=== PATIENT | female | born 1945 | race Caucasian/White ===

== ENCOUNTER 2022-07-24 09:32 | Outpatient (RCR) | payer MEDICARE, SELFPAY ==
[2022-07-24 10:01] VITALS: BP 132/65; PULSE 68; RESP 16; TEMP 36.2; BMI 25.7
--- NOTE | 2022-07-25 08:02 | PCM.WC.HP ---
History of Present Illness Date of Service: 07/24/22 Chief Complaint: Chronic nonhealing of a cutaneous biopsy site History of Wound: This is a 76-year-old female who presents with a chronic, nonhealing cutaneous biopsy site on her left lateral calf. Patient has a history of malignant melanoma in her right leg. 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 In March 2022 the patient underwent excisional biopsy of a skin lesion on the left lateral calf. This was performed by Dr. Shae Velazquez at [facility]. While the biopsy results are not currently available, the patient states that she was told that it was precancerous. We will attempt to obtain the written biopsy report. The biopsy site has failed to heal. She has been referred for definitive management. She has been applying Vaseline topically to the site. [facility] Medical History Arthritis Atrial fibrillation Borderline diabetes mellitus Chronic wound of extremity Degenerative disc disease GERD (gastroesophageal reflux disease) History of meningioma History of TIA (transient ischemic attack) Hyperlipidemia Hyperpigmentation Hypertension Left leg swelling Mitral valve regurgitation PVCs (premature ventricular contractions) Scoliosis Swelling of left lower extremity Home Medications Lactobacillus acidophilus 1.5 mg (250 million cell) capsule (Probiotic Acidophilus) PO DAILY 07/24/22 [History Last Taken Unknown] acetaminophen 325 mg tablet (Tylenol) 325 - 650 mg PO Q6H PRN Pain 07/24/22 [History Last Taken Unknown] apixaban 5 mg tablet (Eliquis) 5 mg PO BID 07/24/22 [History Last Taken Unknown] atorvastatin 10 mg tablet 10 mg PO DAILY 07/24/22 [History Last Taken Unknown] biotin PO/SL DAILY 07/24/22 [History Last Taken Unknown] cholecalciferol (vitamin D3) 25 mcg (1,000 unit) tablet (Vitamin D3) 25 mcg PO DAILY 07/24/22 [History Last Taken Unknown] diphenhydramine HCl 25 mg capsule (Benadryl) 25 mg PO QHS 07/24/22 [History Last Taken Unknown] escitalopram oxalate 20 mg tablet 20 mg PO DAILY 07/24/22 [History Last Taken Unknown] fiber cap PO 07/24/22 [History Last Taken Unknown] metoprolol succinate 50 mg tablet,extended release 24 hr 50 mg PO DAILY 07/24/22 [History Last Taken Unknown] multivitamin 1 tab PO BID 07/24/22 [History Last Taken Unknown] omega 1-trd-hlz-fish oil 1,200 mg (144 mg-216 mg) capsule (Fish Oil) 1,200 cap PO DAILY 07/24/22 [History Last Taken Unknown] omeprazole 20 mg capsule,delayed release 20 mg PO DAILY 07/24/22 [History Last Taken Unknown] Allergy/AdvReac Type Severity Reaction Status Date / Time sertraline [From Zoloft] Allergy Hives Verified 07/24/22 10:43 Sulfa (Sulfonamide Allergy PT UNSURE Verified 07/24/22 10:43 Antibiotics) OF REACTION amoxicillin [From Augmentin] AdvReac Diarrhea Verified 07/24/22 10:43 clavulanic acid AdvReac Diarrhea Verified 07/24/22 10:43 [From Augmentin] Iodinated Contrast Media AdvReac PT UNSURE Verified 07/24/22 10:43 [CONTRASTS] OF REACTION Surgical History Status post appendectomy Status post cataract extraction Status post partial colectomy Status post tonsillectomy Status post total knee replacement Status post tubal ligation Social History Smoking Status: Former smoker Vital Signs Vital Signs Vital Signs: 07/24/22 10:01 Temperature 97.1 F L Temperature Source Temporal Pulse Rate 68 Respiratory Rate 16 Blood Pressure 132/65 H Blood Pressure Mean 87 Blood Pressure Source Monitor Blood Pressure Position Sitting Blood Pressure Location Left Arm Oxygen Delivery Method Room Air Weight Weight: 134 lb Body Mass Index (BMI) 25.7 Physical Exam Const alert, oriented x3, no apparent distress, average body habitus and well nourished General Appearance: cooperative, comfortable, well kempt and well developed Orientation / Consciousness: awake, oriented to person, oriented to place and oriented to time Exam Limitations: no limitations HEENT normocephalic and head/scalp atraumatic Head and Scalp: normal to inspection, normocephalic and atraumatic External Ear: external ears normal Eyes PERRL and EOMs intact bilaterally General Eye: normal appearance of both eyes Resp normal respiratory effort, normal air movement, no retractions and no use of accessory muscles Effort and Inspection: able to speak in complete sentences Extremity no calf tenderness General Extremity: Negative for clubbing or cyanosis Skin Wound Narrative: Mild hemosiderin staining/hyperpigmentation is noted in the left lower extremity. Slight swelling is also noted in the left lower extremity. An ulceration is noted on the left lateral calf, the site of the patient's prior biopsy in March 2022. There is a moderate amount of bioburden. A small amount of nonviable necrotic tissue is present. Dimensions are documented elsewhere. Neuro oriented x3, CN's II-XII intact bilaterally, moves all extremities and no focal motor deficits Sensorium / Orientation: awake, alert, oriented to person, oriented to place and oriented to time Psych Appearance: grossly normal and appropriate Attitude: calm Activity / Motor Behavior: appropriate eye contact Speech: normal speech Mood & Affect: euthymic mood Thought Process: normal thought process Thought Content: normal thought content Attention / Concentration: attention grossly intact Debridement Note Debridement Note Wound debrided: Left lateral calf Laterality: Left Type of Debridement: Excisional debridement Anesthesia Used: 5% Lidocaine Gel Depth: Down to and including healthy tissue and in the subcutaneous layer Percentage of wound debrided: 100 Instrument Used: 5mm curette Tissue Removed: Bioburden and nonviable/necrotic tissue Severity: Fat Layer Exposed Amount of bleeding with debridement: Mild Bleeding Controlled with: Compression and gauze Patient tolerated procedure: Patient tolerated procedure well Debridement Free Text: Bacterial cultures were obtained by means of swab. Both aerobic and anaerobic swab cultures were obtained. Post-Debridement Measurements and Additional Note: Post-Debridement Measurements/Treatment KANNAN - Nurse 1 - General Ulcer Assessment Start: 07/24/22 10:01 Freq: Status: Active Protocol: ALEJANDRA Activity Type Activity Date Activity User E-sign Co-sign Detail Recorded Client Recorded Date Recorded By Document 07/24/22 10:01 MW [id number] 07/24/22 10:16 MW 07/24/22 10:01 - Today's Visit Information Type of service Initial Visit Arrival Mode Ambulatory Transfer Assistance None Accompanied by self Patient Identification Verified (Name & Yes ) Patient Requires Transmission-Based Yes Precautions Safety Precautions NA Height and Weight Height 5 ft 0.5 in Weight 134 lb Weight in Pounds 134.0 lbs Body Mass Index (BMI) 25.7 BMI Classification Overweight BSA - Cornelius 1.58 Vital Signs Temperature (97.8 F-99.1 F) 97.1 F L Temperature Source Temporal Pulse Rate (60-100) 68 Pulse Location Monitor Respiratory Rate (12-18) 16 Respiratory rate source Observation Oxygen Delivery Method Room Air Blood Pressure (90/60-120/80) 132/65 H Blood Pressure Mean 87 Source Monitor Position Sitting Blood Pressure Location Left Arm History Since Last Visit- (Skip if this is Patient's initial visit) Left Footwear Regular Shoe Right Footwear Regular Shoe Pain Scale: 0-10 Numeric Is Patient Pain Free? No Lower Extremity Assessment/ Foot Assessment/ Toe Nail Assessment Right -Posterior Tibial Palpable No -Posterior Tibial Doppler Multiphasic -Dorsalis Pedis Palpable Yes -Dorsalis Pedis Doppler Multiphasic -Extremity Color Hemosiderin -Hair Growth on Legs No -Hair Growth on Toes No -Temperature of Extremity Warm -Capillary Refill Less than 3 Seconds -Dependent Rubor No -Lipodermatosclerosis No -Other Deformity No -Prior Foot Ulcer No -Charcot Joint No -Prior Amputation No -Thick No -Discolored No -Deformed No -Improper Length & Hygeine No Left -Claudication Assessment None -Posterior Tibial Palpable No -Posterior Tibial Doppler Multiphasic -Dorsalis Pedis Palpable Yes -Dorsalis Pedis Doppler Multiphasic -Extremity Color Hyperpigmented -Hair Growth on Legs No -Hair Growth on Toes No -Temperature of Extremity Warm -Capillary Refill Less than 3 Seconds -Dependent Rubor No -Lipodermatosclerosis No -Other Deformity No -Prior Foot Ulcer No -Charcot Joint No -Prior Amputation No -Thick No -Discolored No -Deformed No -Improper Length & Hygeine No Neuropathy Assessment Feet - Top Side and Bottom <Entered> (a) Communication Assessment Preferred language Citizen Of [place] Skein Spooler Required No Able to Read No Able to Write No Communication Tools None Caregiver Communication Skills No Impairment Impairment Right Hearing Abillity Normal Left Hearing Abillity Normal Visual Assistive Devices Glasses Teaching Assessment Preferences Verbal,Written, Audio/Visual, Demonstration Barriers to Learning None Readiness To Learn Excellent Willingness to Engage in Self Management High Activies Readiness to Engage in Self Management High Activities Anxiety Level Calm Cooperation Cooperative Perception Coherent Interest in Health Problem Asks Questions Education Importance Acknowledges Need Does Patient Smoke tobacco or other No substances Smoking Status Former smoker Is Patient Diabetic Yes Functional Assessment Recent Decline in Ability to Perform Denies Any Declines Assistive Device With Patient No Culture/Caodaism/Hospital Fellow Cultural/Caodaism Needs that may affect No Treatment Plan Would you allow our hospital cosmetology educator to No meet you for the purpose of spiritual/ emotional support? Hospital Fellow to contact place of rastafarian No Teaching: Wound Center *Welcome to the Wound Center -Person Taught Patient -Teaching Method Discussion -Response to teaching Verbalize understanding (a) 1 - + WC - Nurse 1 - General Ulcer Measurement Start: 07/24/22 10:01 Freq: Status: Active Protocol: Activity Type Activity Date Activity User E-sign Co-sign Detail Recorded Client Recorded Date Recorded By Document 07/24/22 10:01 MW [id number] 07/24/22 10:16 MW 07/24/22 10:01 Wound Center Nurse 1 #1 left lateral LE -Combined with other wound No -Current Size (cm) - Length 0.8 -Current Size (cm) - Width 0.8 -Current Size (cm) - Depth 0.3 -Total Square Cm 0.64 -Date of Last Picture (Recall this 07/24/22 field) -Photo Taken Yes -Epithelialization None Present -Tunneling No -Undermining/Tunneling No -Circular Undermining No -Exudate Amt None Present -Wound Margin Flat & Intact -Granulation Amt None Present (0 %) -Granulation Quality N/A -Slough/Fibrin Yes -Necrosis Amt Large (67-100%) -Necrotic Tissue Type Eschar -Structure Exposed N/A -Texture (Crystal-wound Skin Appearance) Assessed, Localized Edema -Moisture (Crystal-wound Skin Appearance) Assessed -Color (Crystal-wound Skin Appearance) Assessed, Hemosiderin Staining -Temperature (Crystal-wound Skin No Abnormality Appearance) (Pt Warm) -Tenderness on Palpation (Crystal-wound Yes Skin Appearance) -Ulcer Cleansing Rinsed/ Irrigated with Saline -Foul Odor after Cleansing No -Anesthetic Used 5% Lidocaine Gel Lower Limb Edema Present Yes Right Calf (cm) 31.5 Right Ankle (cm) 19.2 Left Calf (cm) 33.1 Left Ankle (cm) 22.0 WC - Nurse 2 - General Ulcer CM Notes Start: 07/24/22 10:01 Freq: Status: Active Protocol: Activity Type Activity Date Activity User E-sign Co-sign Detail Recorded Client Recorded Date Recorded By Document 07/24/22 12:06 PL [id number] 07/24/22 12:11 PL 07/24/22 12:06 Wound Center Nurse 2 #1 left lateral LE -Time 10:47 -Correct Patient Yes -Correct Side, Site, Position Yes -Correct Procedure Yes -Procedure Performed Yes -Type of Procedure Debridement -Clinical Debridement Subcutaneous -Tissue Removed Subcutaneous -Post Debridement (cm) - Length 0.8 -Post Debridement (cm) - Width 0.8 -Post Debridement (cm) - Depth 0.3 -Total Square (Post) (cm) 0.64 -Area of Debridement (cm) - Length 0.8 -Area of Debridement (cm) - Width 0.8 -Total Square (Area) (cm) 0.64 -Tunneling No -Undermining/Tunneling No -Circular Undermining No -Wound/Ulcer Outcome Not Healed -Ulcer Cleansing Rinsed/ Irrigated with Saline -Foul Odor after Cleansing No -Bioengineered Tissue No -Bleeding Controlled with Pressure -Treatment Response Procedure Tolerated Well -Debridement - Subq, 1st 20sq cm Yes Pain Scale: 0-10 Numeric Is Patient Pain Free? Yes - Nurse 3 - General Ulcer D/C NN Start: 07/24/22 10:01 Freq: Status: Active Protocol: Activity Type Activity Date Activity User E-sign Co-sign Detail Recorded Client Recorded Date Recorded By Document 07/24/22 11:07 MW [id number] 07/24/22 11:09 MW 07/24/22 11:07 Wound Care Nurse 3 #1 left lateral LE -Ulcer Cleansing Rinsed/ Irrigated with Saline -Foul Odor after Cleansing No -Negative Pressure Wound Therapy N/A -Primary Dressing Applied Nugauze, Plain Iodoform -Other Dressing dressing applied per Betsy Sofia RN -Primary Dressing Covered/Secured with Dry Gauze & Roll Gauze, Secured with Tape -Nugauze, Plain Iodoform 1/4 1 Left -Lotion applied to leg before No compression wrap -Tubular Bandage Single Layer -Size of Tubigrip Used Size D -Size D ($) 1 Treatment Response Procedure Tolerated Well Pain Scale: 0-10 Numeric Is Patient Pain Free? Yes Teaching: Wound Center Dressing Your Wound -Person Taught Patient -Teaching Method Discussion, Demonstration -Response to teaching Verbalize understanding WC - Visit Discharge Discharge Condition Stable Ambulatory Status Ambulatory Transportation Private Auto Accompanied by self Medication Reconcilliation completed & No provided to patient/care provider Clinical Summary of Care Provided Yes Assessment/Plan Assessment/Plan (1) Chronic wound of extremity: (2) Swelling of left lower extremity: CODE(S): M79.89 - Other specified soft tissue disorders (3) Atrial fibrillation: CODE(S): I48.91 - Unspecified atrial fibrillation (4) History of meningioma: CODE(S): Z86.018 - Personal history of other benign neoplasm (5) Degenerative disc disease: (6) Arthritis: CODE(S): M19.90 - Unspecified osteoarthritis, unspecified site (7) GERD (gastroesophageal reflux disease): CODE(S): K21.9 - Gastro-esophageal reflux disease without esophagitis (8) Borderline diabetes mellitus: CODE(S): R73.03 - Prediabetes (9) Mitral valve regurgitation: CODE(S): I34.0 - Nonrheumatic mitral (valve) insufficiency (10) PVCs (premature ventricular contractions): CODE(S): I49.3 - Ventricular premature depolarization (11) Scoliosis: CODE(S): M41.9 - Scoliosis, unspecified (12) History of TIA (transient ischemic attack): CODE(S): Z86.73 - Personal history of transient ischemic attack (TIA), and cerebral infarction without residual deficits (13) Status post appendectomy: CODE(S): Z90.49 - Acquired absence of other specified parts of digestive tract (14) Status post partial colectomy: CODE(S): Z90.49 - Acquired absence of other specified parts of digestive tract (15) Status post total knee replacement: CODE(S): Z96.659 - Presence of unspecified artificial knee joint (16) Status post tubal ligation: CODE(S): Z98.51 - Tubal ligation status (17) Status post tonsillectomy: CODE(S): Z90.89 - Acquired absence of other organs (18) Status post cataract extraction: CODE(S): Z98.49 - Cataract extraction status, unspecified eye (19) Hypertension: CODE(S): I10 - Essential (primary) hypertension (20) Hyperlipidemia: CODE(S): E78.5 - Hyperlipidemia, unspecified (21) Hyperpigmentation: CODE(S): L81.9 - Disorder of pigmentation, unspecified (22) Left leg swelling: CODE(S): M79.89 - Other specified soft tissue disorders PLAN: Plan This is a 76-year-old female who presents with a chronic, nonhealing wound on the left lateral calf, the result of a biopsy performed in March 2022. We are to seek the written report regarding the biopsy results. Anecdotally, the report revealed precancerous findings. Patient has been advised to elevate her lower extremities as much as possible, and to continue sleeping on a flat mattress at night. Leg elevation is to be to heart level, or higher. We will initiate the use of Tubigrip's on a daily basis. Culture results will be awaited. We are to implement the use of 1/4 inch Nu Gauze moistened with 0.25% Dakin's solution, which will be applied by the patient on a daily basis. The patient is to return in 1 week for reassessment. Total time: 59 minutes
== END 2022-07-25 23:59 | disposition home or self-care (01) ==
LOC: WC 09:32
PROVIDERS: PCP Nurse Practitioner Family; Visit Provider Surgery
DX: L97.922 Non-pressure chronic ulcer of unspecified part of left lower leg with fat layer exposed (principal); I73.9 Peripheral vascular disease, unspecified; I48.91 Unspecified atrial fibrillation; M79.89 Other specified soft tissue disorders; K21.9 Gastro-esophageal reflux disease without esophagitis; I10 Essential (primary) hypertension; Z90.49 Acquired absence of other specified parts of digestive tract; M41.9 Scoliosis, unspecified; I49.3 Ventricular premature depolarization; Z96.659 Presence of unspecified artificial knee joint; G62.9 Polyneuropathy, unspecified; R73.03 Prediabetes; Z90.89 Acquired absence of other organs; I34.0 Nonrheumatic mitral (valve) insufficiency; R60.0 Localized edema; M19.90 Unspecified osteoarthritis, unspecified site; Z87.891 Personal history of nicotine dependence; E78.5 Hyperlipidemia, unspecified; Z79.01 Long term (current) use of anticoagulants; Z86.018 Personal history of other benign neoplasm; Z86.73 Personal history of transient ischemic attack (TIA), and cerebral infarction without residual deficits; Z98.51 Tubal ligation status; L81.9 Disorder of pigmentation, unspecified
CPT/HCPCS: 11042; 87070; 87075; 87077; 87186; 87205; 99213; G0463

== ENCOUNTER 2022-08-21 10:30 | Outpatient (RCR) | payer MEDICARE, SELFPAY ==
[2022-07-26 00:48] VITALS: BP 132/65; PULSE 68; RESP 16; TEMP 36.2; BMI 25.7
[2022-07-31 10:32] VITALS: BP 140/80; PULSE 76; TEMP 36.2; BMI 25.7
--- NOTE | 2022-07-31 11:06 | HP.PCM_ITS ---
History of Present Illness Date of Service: 07/31/22 Chief Complaint: Chronic nonhealing of a cutaneous biopsy site History of Wound: This is a 76-year-old female who presented with a chronic, non-healing cutaneous biopsy site on her left lateral calf. Patient has a history of malignant melanoma in her right leg. 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 In March 2022 the patient underwent excisional biopsy of a skin lesion on the left lateral calf. This was performed by Dr. Shae Velazquez at [facility]. While the biopsy results are not currently available, the patient states that she was told that it was precancerous. We will attempt to obtain the written biopsy report. The biopsy site has failed to heal. She has been referred for definitive management. She had been applying Vaseline topically to the site. [facility] Medical History Arthritis Atrial fibrillation Borderline diabetes mellitus Chronic wound of extremity Degenerative disc disease GERD (gastroesophageal reflux disease) History of meningioma History of TIA (transient ischemic attack) Hyperlipidemia Hyperpigmentation Hypertension Left leg swelling Mitral valve regurgitation PVCs (premature ventricular contractions) Scoliosis Swelling of left lower extremity Home Medications Lactobacillus acidophilus 1.5 mg (250 million cell) capsule (Probiotic Acidophilus) PO DAILY 07/24/22 [History Last Taken Unknown] acetaminophen 325 mg tablet (Tylenol) 325 - 650 mg PO Q6H PRN Pain 07/24/22 [History Last Taken Unknown] apixaban 5 mg tablet (Eliquis) 5 mg PO BID 07/24/22 [History Last Taken Unknown] atorvastatin 10 mg tablet 10 mg PO DAILY 07/24/22 [History Last Taken Unknown] biotin PO/SL DAILY 07/24/22 [History Last Taken Unknown] cholecalciferol (vitamin D3) 25 mcg (1,000 unit) tablet (Vitamin D3) 25 mcg PO DAILY 07/24/22 [History Last Taken Unknown] diphenhydramine HCl 25 mg capsule (Benadryl) 25 mg PO QHS 07/24/22 [History Last Taken Unknown] escitalopram oxalate 20 mg tablet 20 mg PO DAILY 07/24/22 [History Last Taken Unknown] fiber cap PO 07/24/22 [History Last Taken Unknown] metoprolol succinate 50 mg tablet,extended release 24 hr 50 mg PO DAILY 07/24/22 [History Last Taken Unknown] multivitamin 1 tab PO BID 07/24/22 [History Last Taken Unknown] omega 6-bmf-gbt-fish oil 1,200 mg (144 mg-216 mg) capsule (Fish Oil) 1,200 cap PO DAILY 07/24/22 [History Last Taken Unknown] omeprazole 20 mg capsule,delayed release 20 mg PO DAILY 07/24/22 [History Last Taken Unknown] Allergy/AdvReac Type Severity Reaction Status Date / Time sertraline [From Zoloft] Allergy Hives Verified 07/24/22 10:43 Sulfa (Sulfonamide Allergy PT UNSURE Verified 07/24/22 10:43 Antibiotics) OF REACTION amoxicillin [From Augmentin] AdvReac Diarrhea Verified 07/24/22 10:43 clavulanic acid AdvReac Diarrhea Verified 07/24/22 10:43 [From Augmentin] Iodinated Contrast Media AdvReac PT UNSURE Verified 07/24/22 10:43 [CONTRASTS] OF REACTION Surgical History Status post appendectomy Status post cataract extraction Status post partial colectomy Status post tonsillectomy Status post total knee replacement Status post tubal ligation Social History Smoking Status: Former smoker Vital Signs Vital Signs Vital Signs: 07/31/22 10:32 Temperature 97.2 F L Temperature Source Temporal Pulse Rate 76 Blood Pressure 140/80 H Blood Pressure Mean 100 Blood Pressure Source Monitor Weight Weight: 134 lb Body Mass Index (BMI) 25.7 Physical Exam Const alert, oriented x3, no apparent distress, average body habitus and well nourished General Appearance: cooperative, comfortable, well kempt and well developed Orientation / Consciousness: awake, oriented to person, oriented to place and oriented to time Exam Limitations: no limitations HEENT normocephalic and head/scalp atraumatic Head and Scalp: normal to inspection, normocephalic and atraumatic External Ear: external ears normal Eyes PERRL and EOMs intact bilaterally General Eye: normal appearance of both eyes Resp normal respiratory effort, normal air movement, no retractions and no use of accessory muscles Effort and Inspection: able to speak in complete sentences Extremity no calf tenderness General Extremity: Negative for clubbing or cyanosis Skin Wound Narrative: Mild hemosiderin staining/hyperpigmentation is noted in the left lower extremity. Minimal swelling is noted in the left lower extremity. A wound is noted on the left lateral calf, the site of the patient's prior biopsy in March 2022. There is a mild amount of bioburden. However, the appearance of the wound is much improved as compared to 1 week prior. Dimensions are documented elsewhere. Neuro oriented x3, CN's II-XII intact bilaterally, moves all extremities and no focal motor deficits Sensorium / Orientation: awake, alert, oriented to person, oriented to place and oriented to time Psych Appearance: grossly normal and appropriate Attitude: calm Activity / Motor Behavior: appropriate eye contact Speech: normal speech Mood & Affect: euthymic mood Thought Process: normal thought process Thought Content: normal thought content Attention / Concentration: attention grossly intact Debridement Note Debridement Note Wound debrided: Left lateral calf Laterality: Left Type of Debridement: Excisional debridement Anesthesia Used: 5% Lidocaine Gel Depth: Down to and including healthy tissue and in the subcutaneous layer Percentage of wound debrided: 100 Instrument Used: 5mm curette Tissue Removed: Bioburden and nonviable/necrotic tissue Severity: Fat Layer Exposed Amount of bleeding with debridement: Mild Bleeding Controlled with: Compression and gauze Patient tolerated procedure: Patient tolerated procedure well Debridement Free Text: Bacterial cultures were obtained by means of swab. Both aerobic and anaerobic swab cultures were obtained. Post-Debridement Measurements and Additional Note: Post-Debridement Measurements/Treatment - Nurse 1 - General Ulcer Assessment Start: 07/31/22 10:32 Freq: Status: Active Protocol: ALEJANDRA Activity Type Activity Date Activity User E-sign Co-sign Detail Recorded Client Recorded Date Recorded By Document 07/31/22 10:32 MI [id number] 07/31/22 10:34 YOSELIN 07/31/22 10:32 - Today's Visit Information Type of service Follow-up Visit (Physician/[facility] [facility] ) Arrival Mode Ambulatory Patient Identification Verified (Name & Yes ) Patient Requires Transmission-Based No Precautions Safety Precautions NA Height and Weight Body Mass Index (BMI) 25.7 BMI Classification Overweight Vital Signs Temperature (97.8 F-99.1 F) 97.2 F L Temperature Source Temporal Pulse Rate (60-100) 76 Pulse Location Monitor Blood Pressure (90/60-120/80) 140/80 H Blood Pressure Mean 100 Source Monitor History Since Last Visit- (Skip if this is Patient's initial visit) Have you changed medications since your No last visit? Any new allergies or adverse reactions No Had a fall/change in ADL's that may No increase risk of falls Signs or symptoms of abuse and/or No neglect since last visit Have you been in the hospital since your No last visit? Has dressing in place as prescribed Yes Has compression in place as prescribed Yes Has offloadiing in place as prescribed No Experienced any changes in pain level or No management Left Footwear Regular Shoe Right Footwear Regular Shoe Pain Scale: 0-10 Numeric Is Patient Pain Free? Yes WC - Nurse 1 - General Ulcer Measurement Start: 07/31/22 10:32 Freq: Status: Active Protocol: Activity Type Activity Date Activity User E-sign Co-sign Detail Recorded Client Recorded Date Recorded By Document 07/31/22 10:32 YOSELIN [id number] 07/31/22 10:34 YOSELIN 07/31/22 10:32 Wound Center Nurse 1 #1 left lateral LE -Combined with other wound No -Current Size (cm) - Length 0.4 -Current Size (cm) - Width 0.3 -Current Size (cm) - Depth 0.2 -Total Square Cm 0.12 -Photo Taken No -Tunneling No -Undermining/Tunneling No -Circular Undermining No -Change in Wound Grade/Stage No -Exudate Amt Small -Exudate Type Serosanguineous -Wound Margin Distinct, Outline Attached -Granulation Amt Small (1-33%) -Granulation Quality N/A,[place] -Slough/Fibrin Yes -Necrosis Amt Small (1-33%) -Necrotic Tissue Type Adherent Slough -Structure Exposed N/A -Texture (Crystal-wound Skin Appearance) No Abnormality, Assessed -Moisture (Crystal-wound Skin Appearance) No Abnormality, Assessed -Color (Crystal-wound Skin Appearance) No Abnormality, Assessed -Temperature (Crystal-wound Skin No Abnormality Appearance) (Pt Warm) -Tenderness on Palpation (Crystal-wound No Skin Appearance) -Ulcer Cleansing Rinsed/ Irrigated with Saline -Foul Odor after Cleansing No -Anesthetic Used 5% Lidocaine Gel Lower Limb Edema Present No Left Calf (cm) 31.5 Left Ankle (cm) 21.5 Assessment/Plan Assessment/Plan (1) Chronic wound of extremity: (2) Swelling of left lower extremity: CODE(S): M79.89 - Other specified soft tissue disorders (3) Atrial fibrillation: CODE(S): I48.91 - Unspecified atrial fibrillation (4) History of meningioma: CODE(S): Z86.018 - Personal history of other benign neoplasm (5) Degenerative disc disease: (6) Arthritis: CODE(S): M19.90 - Unspecified osteoarthritis, unspecified site (7) GERD (gastroesophageal reflux disease): CODE(S): K21.9 - Gastro-esophageal reflux disease without esophagitis (8) Borderline diabetes mellitus: CODE(S): R73.03 - Prediabetes (9) Mitral valve regurgitation: CODE(S): I34.0 - Nonrheumatic mitral (valve) insufficiency (10) PVCs (premature ventricular contractions): CODE(S): I49.3 - Ventricular premature depolarization (11) Scoliosis: CODE(S): M41.9 - Scoliosis, unspecified (12) History of TIA (transient ischemic attack): CODE(S): Z86.73 - Personal history of transient ischemic attack (TIA), and cerebral infarction without residual deficits (13) Status post appendectomy: CODE(S): Z90.49 - Acquired absence of other specified parts of digestive tract (14) Status post partial colectomy: CODE(S): Z90.49 - Acquired absence of other specified parts of digestive tract (15) Status post total knee replacement: CODE(S): Z96.659 - Presence of unspecified artificial knee joint (16) Status post tubal ligation: CODE(S): Z98.51 - Tubal ligation status (17) Status post tonsillectomy: CODE(S): Z90.89 - Acquired absence of other organs (18) Status post cataract extraction: CODE(S): Z98.49 - Cataract extraction status, unspecified eye (19) Hypertension: CODE(S): I10 - Essential (primary) hypertension (20) Hyperlipidemia: CODE(S): E78.5 - Hyperlipidemia, unspecified (21) Hyperpigmentation: CODE(S): L81.9 - Disorder of pigmentation, unspecified (22) Left leg swelling: CODE(S): M79.89 - Other specified soft tissue disorders PLAN: Plan This is a 76-year-old female who presents with a chronic, nonhealing wound on the left lateral calf, the result of a surgical biopsy performed in March 2022. We are to seek the written report regarding the biopsy results. Anecdotally, the report revealed precancerous findings. The patient has been advised to elevate her lower extremities as much as possible, and to continue sleeping on a flat mattress at night. Leg elevation is to be to heart level, or higher. We will continue the use of Tubigrip's on a daily basis. Culture results were positive for 2+ Staphylococcus pseudointermedius. Based upon the sensitivity results, the patient has been placed on doxycycline 100 mg p.o. daily, for a total of 7 days. We are to implement the use of Promogran, which will be applied topically on a daily basis. The patient has been instructed in the appropriate means of application. The patient is to return in 1 week for reassessment. Total time: 29 minutes
[2022-08-07 10:30] VITALS: BP 151/64; PULSE 60; TEMP 35.7; BMI 25.7
--- NOTE | 2022-08-07 13:10 | HP.PCM_ITS ---
History of Present Illness Date of Service: 08/07/22 Chief Complaint: Chronic nonhealing of a cutaneous biopsy site History of Wound: This is a 76-year-old female who presented with a chronic, non-healing cutaneous biopsy site on her left lateral calf. Patient has a history of malignant melanoma in her right leg. 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 In March 2022 the patient underwent excisional biopsy of a skin lesion on the left lateral calf. This was performed by Dr. Shae Velazquez at [facility]. While the biopsy results are not currently available, the patient states that she was told that it was precancerous. We will attempt to obtain the written biopsy report. The biopsy site has failed to heal. She has been referred for definitive management. She had been applying Vaseline topically to the site. [facility] Medical History Arthritis Atrial fibrillation Borderline diabetes mellitus Chronic wound of extremity Degenerative disc disease GERD (gastroesophageal reflux disease) History of meningioma History of TIA (transient ischemic attack) Hyperlipidemia Hyperpigmentation Hypertension Left leg swelling Mitral valve regurgitation PVCs (premature ventricular contractions) Scoliosis Swelling of left lower extremity Home Medications Lactobacillus acidophilus 1.5 mg (250 million cell) capsule (Probiotic Acidophilus) PO DAILY 07/24/22 [History Last Taken Unknown] acetaminophen 325 mg tablet (Tylenol) 325 - 650 mg PO Q6H PRN Pain 07/24/22 [History Last Taken Unknown] apixaban 5 mg tablet (Eliquis) 5 mg PO BID 07/24/22 [History Last Taken Unknown] atorvastatin 10 mg tablet 10 mg PO DAILY 07/24/22 [History Last Taken Unknown] biotin PO/SL DAILY 07/24/22 [History Last Taken Unknown] cholecalciferol (vitamin D3) 25 mcg (1,000 unit) tablet (Vitamin D3) 25 mcg PO DAILY 07/24/22 [History Last Taken Unknown] diphenhydramine HCl 25 mg capsule (Benadryl) 25 mg PO QHS 07/24/22 [History Last Taken Unknown] escitalopram oxalate 20 mg tablet 20 mg PO DAILY 07/24/22 [History Last Taken Unknown] fiber cap PO 07/24/22 [History Last Taken Unknown] metoprolol succinate 50 mg tablet,extended release 24 hr 50 mg PO DAILY 07/24/22 [History Last Taken Unknown] multivitamin 1 tab PO BID 07/24/22 [History Last Taken Unknown] omega 3-zzx-erj-fish oil 1,200 mg (144 mg-216 mg) capsule (Fish Oil) 1,200 cap PO DAILY 07/24/22 [History Last Taken Unknown] omeprazole 20 mg capsule,delayed release 20 mg PO DAILY 07/24/22 [History Last Taken Unknown] Allergy/AdvReac Type Severity Reaction Status Date / Time sertraline [From Zoloft] Allergy Hives Verified 07/24/22 10:43 Sulfa (Sulfonamide Allergy PT UNSURE Verified 07/24/22 10:43 Antibiotics) OF REACTION amoxicillin [From Augmentin] AdvReac Diarrhea Verified 07/24/22 10:43 clavulanic acid AdvReac Diarrhea Verified 07/24/22 10:43 [From Augmentin] Iodinated Contrast Media AdvReac PT UNSURE Verified 07/24/22 10:43 [CONTRASTS] OF REACTION Surgical History Status post appendectomy Status post cataract extraction Status post partial colectomy Status post tonsillectomy Status post total knee replacement Status post tubal ligation Social History Smoking Status: Former smoker Vital Signs Vital Signs Vital Signs: 08/07/22 10:30 Temperature 96.3 F L Temperature Source Temporal Pulse Rate 60 Blood Pressure 151/64 H Blood Pressure Mean 93 Blood Pressure Source Monitor Weight Weight: 134 lb Body Mass Index (BMI) 25.7 Physical Exam Const alert, oriented x3, no apparent distress, average body habitus and well nourished General Appearance: cooperative, comfortable, well kempt and well developed Orientation / Consciousness: awake, oriented to person, oriented to place and oriented to time Exam Limitations: no limitations HEENT normocephalic and head/scalp atraumatic Head and Scalp: normal to inspection, normocephalic and atraumatic External Ear: external ears normal Eyes PERRL and EOMs intact bilaterally General Eye: normal appearance of both eyes Resp normal respiratory effort, normal air movement, no retractions and no use of accessory muscles Effort and Inspection: able to speak in complete sentences Extremity no calf tenderness General Extremity: Negative for clubbing or cyanosis Skin Wound Narrative: Mild hemosiderin staining/hyperpigmentation is noted in the gaiter area of the left lower extremity. Minimal swelling is noted in the left lower extremity. A wound is noted on the left lateral calf, the site of the patient's prior biopsy in March 2022. There is a small amount of bioburden. However, the appearance of the wound is much improved as compared to 1 week prior, and the wound is now nearly totally healed, but for a very small punctate residual opening. Dimensions are documented elsewhere. Neuro oriented x3, CN's II-XII intact bilaterally, moves all extremities and no focal motor deficits Sensorium / Orientation: awake, alert, oriented to person, oriented to place and oriented to time Psych Appearance: grossly normal and appropriate Attitude: calm Activity / Motor Behavior: appropriate eye contact Speech: normal speech Mood & Affect: euthymic mood Thought Process: normal thought process Thought Content: normal thought content Attention / Concentration: attention grossly intact Debridement Note Debridement Note Wound debrided: Left lateral calf wound, biopsy site Laterality: Left Type of Debridement: Selective debridement Anesthesia Used: 5% Lidocaine Gel Depth: Down to and including healthy tissue Percentage of wound debrided: 100 Instrument Used: 3mm curette Tissue Removed: Bioburden and eschar Severity: Limited To Skin Breakdown Amount of bleeding with debridement: Mild Bleeding Controlled with: Compression and gauze Patient tolerated procedure: Patient tolerated procedure well Post-Debridement Measurements and Additional Note: Post-Debridement Measurements/Treatment - Nurse 1 - General Ulcer Assessment Start: 07/31/22 10:32 Freq: Status: Active Protocol: ALEJANDRA Activity Type Activity Date Activity User E-sign Co-sign Detail Recorded Client Recorded Date Recorded By Document 07/31/22 10:32 [place] [id number] 07/31/22 10:34 AK Document 08/07/22 10:30 YOSELIN [id number] 08/07/22 10:37 YOSELIN 07/31/22 08/07/22 10:32 10:30 - Today's Visit Information Type of service Follow-up Visit Follow-up Visit (Physician/PERIODICALS LIBRARY ASSISTANT (Physician/PERIODICALS LIBRARY ASSISTANT ) ) Arrival Mode Ambulatory Ambulatory Patient Identification Verified (Name & Yes Yes ) Patient Requires Transmission-Based No No Precautions Safety Precautions NA Height and Weight Body Mass Index (BMI) 25.7 25.7 BMI Classification Overweight Overweight Vital Signs Temperature (97.8 F-99.1 F) 97.2 F L 96.3 F L Temperature Source Temporal Temporal Pulse Rate (60-100) 76 60 Pulse Location Monitor Monitor Blood Pressure (90/60-120/80) 140/80 H 151/64 H Blood Pressure Mean 100 93 Source Monitor Monitor History Since Last Visit- (Skip if this is Patient's initial visit) Have you changed medications since your No No last visit? Any new allergies or adverse reactions No No Had a fall/change in ADL's that may No No increase risk of falls Signs or symptoms of abuse and/or No No neglect since last visit Have you been in the hospital since your No No last visit? Has dressing in place as prescribed Yes Yes Has compression in place as prescribed Yes Yes Has offloadiing in place as prescribed No N/A Experienced any changes in pain level or No No management Left Footwear Regular Shoe Regular Shoe Right Footwear Regular Shoe Regular Shoe Pain Scale: 0-10 Numeric Is Patient Pain Free? Yes Yes WC - Nurse 1 - General Ulcer Measurement Start: 07/31/22 10:32 Freq: Status: Active Protocol: Activity Type Activity Date Activity User E-sign Co-sign Detail Recorded Client Recorded Date Recorded By Document 07/31/22 10:32 [place] [id number] 07/31/22 10:34 AK Document 08/07/22 10:30 W[place] [id number] 08/07/22 10:37 AK 07/31/22 08/07/22 10:32 10:30 Wound Center Nurse 1 #1 left lateral LE -Combined with other wound No No -Current Size (cm) - Length 0.4 0.1 -Current Size (cm) - Width 0.3 0.1 -Current Size (cm) - Depth 0.2 0.1 -Total Square Cm 0.12 0.01 -Photo Taken No No -Tunneling No No -Undermining/Tunneling No No -Circular Undermining No No -Change in Wound Grade/Stage No No -Exudate Amt Small None Present -Exudate Type Serosanguineous -Wound Margin Distinct, Distinct, Outline Outline Attached Attached -Granulation Amt Small (1-33%) None Present (0 %) -Granulation Quality N/A,Point Arena N/A,Point Arena -Slough/Fibrin Yes No -Necrosis Amt Small (1-33%) -Necrotic Tissue Type Adherent Slough -Structure Exposed N/A N/A -Texture (Crystal-wound Skin Appearance) No Abnormality, No Abnormality, Assessed Assessed -Moisture (Crystal-wound Skin Appearance) No Abnormality, No Abnormality, Assessed Assessed -Color (Crystal-wound Skin Appearance) No Abnormality, No Abnormality, Assessed Assessed -Temperature (Crystal-wound Skin No Abnormality No Abnormality Appearance) (Pt Warm) (Pt Warm) -Tenderness on Palpation (Crystal-wound No No Skin Appearance) -Ulcer Cleansing Rinsed/ Rinsed/ Irrigated with Irrigated with Saline Saline -Foul Odor after Cleansing No No -Anesthetic Used 5% Lidocaine 4% Lidocaine Gel Solution Lower Limb Edema Present No Left Calf (cm) 31.5 32 Left Ankle (cm) 21.5 22 WC - Nurse 2 - General Ulcer CM Notes Start: 07/31/22 10:32 Freq: Status: Active Protocol: Activity Type Activity Date Activity User E-sign Co-sign Detail Recorded Client Recorded Date Recorded By Document 07/31/22 11:15 PL [id number] 07/31/22 11:16 PL Document 08/07/22 11:20 [id number] 08/07/22 11:20 PL 07/31/22 08/07/22 11:15 11:20 Wound Center Nurse 2 #1 left lateral LE -Time 10:50 10:58 -Correct Patient Yes Yes -Correct Side, Site, Position Yes Yes -Correct Procedure Yes Yes -Procedure Performed Yes Yes -Type of Procedure Debridement Debridement -Clinical Debridement Subcutaneous Epidermis / Dermis -Tissue Removed Subcutaneous Epidermis, Dermis -Post Debridement (cm) - Length 0.4 0.1 -Post Debridement (cm) - Width 0.3 0.1 -Post Debridement (cm) - Depth 0.2 0.1 -Total Square (Post) (cm) 0.12 0.01 -Area of Debridement (cm) - Length 0.4 0.1 -Area of Debridement (cm) - Width 0.3 0.1 -Total Square (Area) (cm) 0.12 0.01 -Tunneling No No -Undermining/Tunneling No No -Circular Undermining No No -Wound/Ulcer Outcome Not Healed Not Healed -Ulcer Cleansing Rinsed/ Rinsed/ Irrigated with Irrigated with Saline Saline -Foul Odor after Cleansing No No -Bioengineered Tissue No No -Bleeding Controlled with Pressure Pressure -Treatment Response Procedure Procedure Tolerated Well Tolerated Well -Debridement - Open, 1st 20sq cm Yes -Debridement - Subq, 1st 20sq cm Yes Pain Scale: 0-10 Numeric Is Patient Pain Free? Yes Yes - Nurse 3 - General Ulcer D/C NN Start: 07/31/22 10:32 Freq: Status: Active Protocol: Activity Type Activity Date Activity User E-sign Co-sign Detail Recorded Client Recorded Date Recorded By Document 07/31/22 11:05 AK [id number] 07/31/22 11:06 AK Document 08/07/22 11:23 KR [id number] 08/07/22 11:23 KR 07/31/22 08/07/22 11:05 11:23 Wound Care Nurse 3 #1 left lateral LE -Ulcer Cleansing Rinsed/ Rinsed/ Irrigated with Irrigated with Saline Saline -Foul Odor after Cleansing No -Negative Pressure Wound Therapy N/A -Primary Dressing Applied Promogran Promogran Araceli Matter -Primary Dressing Covered/Secured with Dry Gauze & Dry Gauze,Dry Roll Gauze, Gauze & Roll Secured with Gauze,Secured Tape with Tape -Promogran 1 -Promogran Araceli Matter 1 Pain Scale: 0-10 Numeric Is Patient Pain Free? Yes Yes - Visit Discharge Discharge Condition Stable Stable Ambulatory Status Ambulatory Transportation Private Auto Private Auto Medication Reconcilliation completed & Yes provided to patient/care provider Clinical Summary of Care Provided Yes Assessment/Plan Assessment/Plan (1) Chronic wound of extremity: (2) Swelling of left lower extremity: CODE(S): M79.89 - Other specified soft tissue disorders (3) Atrial fibrillation: CODE(S): I48.91 - Unspecified atrial fibrillation (4) History of meningioma: CODE(S): Z86.018 - Personal history of other benign neoplasm (5) Degenerative disc disease: (6) Arthritis: CODE(S): M19.90 - Unspecified osteoarthritis, unspecified site (7) GERD (gastroesophageal reflux disease): CODE(S): K21.9 - Gastro-esophageal reflux disease without esophagitis (8) Borderline diabetes mellitus: CODE(S): R73.03 - Prediabetes (9) Mitral valve regurgitation: CODE(S): I34.0 - Nonrheumatic mitral (valve) insufficiency (10) PVCs (premature ventricular contractions): CODE(S): I49.3 - Ventricular premature depolarization (11) Scoliosis: CODE(S): M41.9 - Scoliosis, unspecified (12) History of TIA (transient ischemic attack): CODE(S): Z86.73 - Personal history of transient ischemic attack (TIA), and cerebral infarction without residual deficits (13) Status post appendectomy: CODE(S): Z90.49 - Acquired absence of other specified parts of digestive tract (14) Status post partial colectomy: CODE(S): Z90.49 - Acquired absence of other specified parts of digestive tract (15) Status post total knee replacement: CODE(S): Z96.659 - Presence of unspecified artificial knee joint (16) Status post tubal ligation: CODE(S): Z98.51 - Tubal ligation status (17) Status post tonsillectomy: CODE(S): Z90.89 - Acquired absence of other organs (18) Status post cataract extraction: CODE(S): Z98.49 - Cataract extraction status, unspecified eye (19) Hypertension: CODE(S): I10 - Essential (primary) hypertension (20) Hyperlipidemia: CODE(S): E78.5 - Hyperlipidemia, unspecified (21) Hyperpigmentation: CODE(S): L81.9 - Disorder of pigmentation, unspecified (22) Left leg swelling: CODE(S): M79.89 - Other specified soft tissue disorders PLAN: Plan This is a 76-year-old female who presented with a chronic, nonhealing wound on the left lateral calf, the result of a surgical biopsy performed in March 2022. We are to seek the written report regarding the biopsy results. Anecdotally, the report revealed precancerous findings. The patient has been advised to elevate her lower extremities as much as possible, and to continue sleeping on a flat mattress at night. Leg elevation is to be to heart level, or higher. We will continue the use of Tubigrip's on a daily basis. Culture results were po sitive for 2+ Staphylococcus pseudointermedius. Based upon the sensitivity results, the patient has been placed on doxycycline 100 mg p.o. daily, for a total of 7 days, which has now been completed. We are to continue the use of Promogran, which will be applied topically on a daily basis. The patient has been instructed in the appropriate means of application. The patient's wound appears to be now nearly totally healed. The patient is to return in 2 weeks for reassessment. Total time: 28 minutes
[2022-08-21 10:45] VITALS: BP 123/76; PULSE 70; TEMP 36.1; BMI 25.7
--- NOTE | 2022-08-21 15:05 | PCM.WC.HP ---
History of Present Illness Date of Service: 08/21/22 Chief Complaint: Chronic nonhealing of a cutaneous biopsy site History of Wound: This is a 76-year-old female who presented with a chronic, non-healing cutaneous biopsy site on her left lateral calf. Patient has a history of malignant melanoma in her right leg. 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 In March 2022 the patient underwent excisional biopsy of a skin lesion on the left lateral calf. This was performed by Dr. Shae Velazquez at [facility]. While the biopsy results are not currently available, the patient states that she was told that it was precancerous. We will attempt to obtain the written biopsy report. The biopsy site has failed to heal. She has been referred for definitive management. She had been applying Vaseline topically to the site. COUNT INCLUDES THE [facility] Medical History Arthritis Atrial fibrillation Borderline diabetes mellitus Chronic wound of extremity Degenerative disc disease GERD (gastroesophageal reflux disease) History of meningioma History of TIA (transient ischemic attack) Hyperlipidemia Hyperpigmentation Hypertension Left leg swelling Mitral valve regurgitation PVCs (premature ventricular contractions) Scoliosis Swelling of left lower extremity Home Medications Lactobacillus acidophilus 1.5 mg (250 million cell) capsule (Probiotic Acidophilus) PO DAILY 07/24/22 [History Last Taken Unknown] acetaminophen 325 mg tablet (Tylenol) 325 - 650 mg PO Q6H PRN Pain 07/24/22 [History Last Taken Unknown] apixaban 5 mg tablet (Eliquis) 5 mg PO BID 07/24/22 [History Last Taken Unknown] atorvastatin 10 mg tablet 10 mg PO DAILY 07/24/22 [History Last Taken Unknown] biotin PO/SL DAILY 07/24/22 [History Last Taken Unknown] cholecalciferol (vitamin D3) 25 mcg (1,000 unit) tablet (Vitamin D3) 25 mcg PO DAILY 07/24/22 [History Last Taken Unknown] diphenhydramine HCl 25 mg capsule (Benadryl) 25 mg PO QHS 07/24/22 [History Last Taken Unknown] escitalopram oxalate 20 mg tablet 20 mg PO DAILY 07/24/22 [History Last Taken Unknown] fiber cap PO 07/24/22 [History Last Taken Unknown] metoprolol succinate 50 mg tablet,extended release 24 hr 50 mg PO DAILY 07/24/22 [History Last Taken Unknown] multivitamin 1 tab PO BID 07/24/22 [History Last Taken Unknown] omega [id number] oil 1,200 mg (144 mg-216 mg) capsule (Fish Oil) 1,200 cap PO DAILY 07/24/22 [History Last Taken Unknown] omeprazole 20 mg capsule,delayed release 20 mg PO DAILY 07/24/22 [History Last Taken Unknown] Allergy/AdvReac Type Severity Reaction Status Date / Time sertraline [From Zoloft] Allergy Hives Verified 07/24/22 10:43 Sulfa (Sulfonamide Allergy PT UNSURE Verified 07/24/22 10:43 Antibiotics) OF REACTION amoxicillin [From Augmentin] AdvReac Diarrhea Verified 07/24/22 10:43 clavulanic acid AdvReac Diarrhea Verified 07/24/22 10:43 [From Augmentin] Iodinated Contrast Media AdvReac PT UNSURE Verified 07/24/22 10:43 [CONTRASTS] OF REACTION Surgical History Status post appendectomy Status post cataract extraction Status post partial colectomy Status post tonsillectomy Status post total knee replacement Status post tubal ligation Social History Smoking Status: Former smoker Vital Signs Vital Signs Vital Signs: 08/21/22 10:45 Temperature 97.0 F L Temperature Source Temporal Pulse Rate 70 Blood Pressure 123/76 H Blood Pressure Mean 91 Blood Pressure Source Monitor Blood Pressure Position Sitting Blood Pressure Location Left Arm Weight Weight: 134 lb Body Mass Index (BMI) 25.7 Physical Exam Const alert, oriented x3, no apparent distress, average body habitus and well nourished General Appearance: cooperative, comfortable, well kempt and well developed Orientation / Consciousness: awake, oriented to person, oriented to place and oriented to time Exam Limitations: no limitations HEENT normocephalic and head/scalp atraumatic Head and Scalp: normal to inspection, normocephalic and atraumatic External Ear: external ears normal Eyes PERRL and EOMs intact bilaterally General Eye: normal appearance of both eyes Resp normal respiratory effort, normal air movement, no retractions and no use of accessory muscles Effort and Inspection: able to speak in complete sentences Extremity no calf tenderness General Extremity: Negative for clubbing or cyanosis Skin Wound Narrative: Mild hemosiderin staining/hyperpigmentation is noted in the gaiter area of the left lower extremity. Minimal swelling is noted in the left lower extremity. A wound is noted on the left lateral calf, the site of the patient's prior biopsy in March 2022. There is a small amount of bioburden. However, the appearance of the wound is much improved as compared to 1 week prior, and the wound is now nearly totally healed, but for a very small residual wound. Dimensions are documented elsewhere. Neuro oriented x3, CN's II-XII intact bilaterally, moves all extremities and no focal motor deficits Sensorium / Orientation: awake, alert, oriented to person, oriented to place and oriented to time Psych Appearance: grossly normal and appropriate Attitude: calm Activity / Motor Behavior: appropriate eye contact Speech: normal speech Mood & Affect: euthymic mood Thought Process: normal thought process Thought Content: normal thought content Attention / Concentration: attention grossly intact Debridement Note Debridement Note Post-Debridement Measurements and Additional Note: Post-Debridement Measurements/Treatment - Nurse 1 - General Ulcer Assessment Start: 07/31/22 10:32 Freq: Status: Active Protocol: KANNAN.MARVIN Activity Type Activity Date Activity User E-sign Co-sign Detail Recorded Client Recorded Date Recorded By Document 07/31/22 10:32 YOSELIN [id number] 07/31/22 10:34 IL Document 08/07/22 10:30 IL [id number] 08/07/22 10:37 IL Document 08/21/22 10:45 SHAY [id number] 08/21/22 10:47 SHAY 07/31/22 08/07/22 08/21/22 10:32 10:30 10:45 - Today's Visit Information Type of service Follow-up Visit Follow-up Visit Follow-up Visit (Physician/RECORD LABEL INTERN (Physician/RECORD LABEL INTERN (Physician/RECORD LABEL INTERN ) ) ) Arrival Mode Ambulatory Ambulatory Ambulatory Patient Identification Verified (Name & Yes Yes Yes ) Patient Requires Transmission-Based No No Precautions Safety Precautions NA Height and Weight Body Mass Index (BMI) 25.7 25.7 25.7 BMI Classification Overweight Overweight Overweight Vital Signs Temperature (97.8 F-99.1 F) 97.2 F L 96.3 F L 97.0 F L Temperature Source Temporal Temporal Temporal Pulse Rate (60-100) 76 60 70 Pulse Location Monitor Monitor Monitor Blood Pressure (90/60-120/80) 140/80 H 151/64 H 123/76 H Blood Pressure Mean 100 93 91 Source Monitor Monitor Monitor Position Sitting Blood Pressure Location Left Arm History Since Last Visit- (Skip if this is Patient's initial visit) Have you changed medications since your No No No last visit? Any new allergies or adverse reactions No No No Had a fall/change in ADL's that may No No No increase risk of falls Signs or symptoms of abuse and/or No No No neglect since last visit Have you been in the hospital since your No No No last visit? Has dressing in place as prescribed Yes Yes Yes Has compression in place as prescribed Yes Yes Yes Has offloadiing in place as prescribed No N/A N/A Experienced any changes in pain level or No No No management Left Footwear Regular Shoe Regular Shoe Regular Shoe Right Footwear Regular Shoe Regular Shoe Regular Shoe Pain Scale: 0-10 Numeric Is Patient Pain Free? Yes Yes Yes WC - Nurse 1 - General Ulcer Measurement Start: 07/31/22 10:32 Freq: Status: Active Protocol: Activity Type Activity Date Activity User E-sign Co-sign Detail Recorded Client Recorded Date Recorded By Document 07/31/22 10:32 IL [id number] 07/31/22 10:34 AK Document 08/07/22 10:30 AK [id number] 08/07/22 10:37 AK Document 08/21/22 10:45 KR [id number] 08/21/22 10:47 KR 07/31/22 08/07/22 08/21/22 10:32 10:30 10:45 Wound Center Nurse 1 #1 left lateral LE -Combined with other wound No No -Current Size (cm) - Length 0.4 0.1 0.1 -Current Size (cm) - Width 0.3 0.1 0.1 -Current Size (cm) - Depth 0.2 0.1 0.1 -Total Square Cm 0.12 0.01 0.01 -Photo Taken No No -Tunneling No No -Undermining/Tunneling No No -Circular Undermining No No -Change in Wound Grade/Stage No No -Exudate Amt Small None Present None Present -Exudate Type Serosanguineous -Wound Margin Distinct, Distinct, Distinct, Outline Outline Outline Attached Attached Attached -Granulation Amt Small (1-33%) None Present (0 None Present (0 %) %) -Granulation Quality N/A,[place] N/A,[place] -Slough/Fibrin Yes No -Necrosis Amt Small (1-33%) None Present (0 %) -Necrotic Tissue Type Adherent Slough -Structure Exposed N/A N/A -Texture (Crystal-wound Skin Appearance) No Abnormality, No Abnormality, Assessed, Assessed Assessed Scarring -Moisture (Crystal-wound Skin Appearance) No Abnormality, No Abnormality, No Abnormality, Assessed Assessed Assessed -Color (Crystal-wound Skin Appearance) No Abnormality, No Abnormality, No Abnormality, Assessed Assessed Assessed -Temperature (Crystal-wound Skin No Abnormality No Abnormality No Abnormality Appearance) (Pt Warm) (Pt Warm) (Pt Warm) -Tenderness on Palpation (Crystal-wound No No No Skin Appearance) -Ulcer Cleansing Rinsed/ Rinsed/ Rinsed/ Irrigated with Irrigated with Irrigated with Saline Saline Saline -Foul Odor after Cleansing No No No -Anesthetic Used 5% Lidocaine 4% Lidocaine 5% Lidocaine Gel Solution Gel Lower Limb Edema Present No Left Calf (cm) 31.5 32 Left Ankle (cm) 21.5 22 WC - Nurse 2 - General Ulcer CM Notes Start: 07/31/22 10:32 Freq: Status: Active Protocol: Activity Type Activity Date Activity User E-sign Co-sign Detail Recorded Client Recorded Date Recorded By Document 07/31/22 11:15 [id number] 07/31/22 11:16 Document 08/07/22 11:20 [id number] 08/07/22 11:20 Document 08/21/22 11:49 [id number] 08/21/22 11:50 07/31/22 08/07/22 08/21/22 11:15 11:20 11:49 Wound Center Nurse 2 #1 left lateral LE -Time 10:50 10:58 11:12 -Correct Patient Yes Yes Yes -Correct Side, Site, Position Yes Yes Yes -Correct Procedure Yes Yes Yes -Procedure Performed Yes Yes Yes -Type of Procedure Debridement Debridement Debridement -Clinical Debridement Subcutaneous Epidermis / Subcutaneous Dermis -Tissue Removed Subcutaneous Epidermis, Subcutaneous Dermis -Post Debridement (cm) - Length 0.4 0.1 0.1 -Post Debridement (cm) - Width 0.3 0.1 0.1 -Post Debridement (cm) - Depth 0.2 0.1 0.1 -Total Square (Post) (cm) 0.12 0.01 0.01 -Area of Debridement (cm) - Length 0.4 0.1 0.1 -Area of Debridement (cm) - Width 0.3 0.1 0.1 -Total Square (Area) (cm) 0.12 0.01 0.01 -Tunneling No No No -Undermining/Tunneling No No No -Circular Undermining No No No -Wound/Ulcer Outcome Not Healed Not Healed Not Healed -Ulcer Cleansing Rinsed/ Rinsed/ Rinsed/ Irrigated with Irrigated with Irrigated with Saline Saline Saline -Foul Odor after Cleansing No No No -Bioengineered Tissue No No No -Bleeding Controlled with Pressure Pressure Pressure -Treatment Response Procedure Procedure Procedure Tolerated Well Tolerated Well Tolerated Well -Debridement - Open, 1st 20sq cm Yes -Debridement - Subq, 1st 20sq cm Yes Yes Pain Scale: 0-10 Numeric Is Patient Pain Free? Yes Yes Yes WC - Nurse 3 - General Ulcer D/C NN Start: 07/31/22 10:32 Freq: Status: Active Protocol: Activity Type Activity Date Activity User E-sign Co-sign Detail Recorded Client Recorded Date Recorded By Document 07/31/22 11:05 AK [id number] 07/31/22 11:06 AK Document 08/07/22 11:23 KR [id number] 08/07/22 11:23 KR Document 08/21/22 11:27 SHAY [id number] 08/21/22 11:27 KR 07/31/22 08/07/22 08/21/22 11:05 11:23 11:27 Wound Care Nurse 3 #1 left lateral LE -Ulcer Cleansing Rinsed/ Rinsed/ Rinsed/ Irrigated with Irrigated with Irrigated with Saline Saline Saline -Foul Odor after Cleansing No -Negative Pressure Wound Therapy N/A -Primary Dressing Applied Promogran Promogran C Hydrogel ($) Araceli Matter -Primary Dressing Covered/Secured with Dry Gauze & Dry Gauze,Dry Dry Gauze, Roll Gauze, Gauze & Roll Secured with Secured with Gauze,Secured Tape Tape with Tape -Promogran 1 -Promogran Araceli Matter 1 Pain Scale: 0-10 Numeric Is Patient Pain Free? Yes Yes Yes WC - Visit Discharge Discharge Condition Stable Stable Stable Ambulatory Status Ambulatory Ambulatory Transportation Private Auto Private Auto Private Auto Medication Reconcilliation completed & Yes provided to patient/care provider Clinical Summary of Care Provided Yes Assessment/Plan Assessment/Plan (1) Chronic wound of extremity: (2) Swelling of left lower extremity: CODE(S): M79.89 - Other specified soft tissue disorders (3) Atrial fibrillation: CODE(S): I48.91 - Unspecified atrial fibrillation (4) History of meningioma: CODE(S): Z86.018 - Personal history of other benign neoplasm (5) Degenerative disc disease: (6) Arthritis: CODE(S): M19.90 - Unspecified osteoarthritis, unspecified site (7) GERD (gastroesophageal reflux disease): CODE(S): K21.9 - Gastro-esophageal reflux disease without esophagitis (8) Borderline diabetes mellitus: CODE(S): R73.03 - Prediabetes (9) Mitral valve regurgitation: CODE(S): I34.0 - Nonrheumatic mitral (valve) insufficiency (10) PVCs (premature ventricular contractions): CODE(S): I49.3 - Ventricular premature depolarization (11) Scoliosis: CODE(S): M41.9 - Scoliosis, unspecified (12) History of TIA (transient ischemic attack): CODE(S): Z86.73 - Personal history of transient ischemic attack (TIA), and cerebral infarction without residual deficits (13) Status post appendectomy: CODE(S): Z90.49 - Acquired absence of other specified parts of digestive tract (14) Status post partial colectomy: CODE(S): Z90.49 - Acquired absence of other specified parts of digestive tract (15) Status post total knee replacement: CODE(S): Z96.659 - Presence of unspecified artificial knee joint (16) Status post tubal ligation: CODE(S): Z98.51 - Tubal ligation status (17) Status post tonsillectomy: CODE(S): Z90.89 - Acquired absence of other organs (18) Status post cataract extraction: CODE(S): Z98.49 - Cataract extraction status, unspecified eye (19) Hypertension: CODE(S): I10 - Essential (primary) hypertension (20) Hyperlipidemia: CODE(S): E78.5 - Hyperlipidemia, unspecified (21) Hyperpigmentation: CODE(S): L81.9 - Disorder of pigmentation, unspecified (22) Left leg swelling: CODE(S): M79.89 - Other specified soft tissue disorders PLAN: Plan This is a 76-year-old female who presented with a chronic, nonhealing wound on the left lateral calf, the result of a surgical biopsy performed in March 2022. We are to seek the written report regarding the biopsy results. Anecdotally, the report revealed precancerous findings. The patient has been advised to elevate her lower extremities as much as possible, and to continue sleeping on a flat mattress at night. Leg elevation is to be to heart level, or higher. We will continue the use of Tubigrip's on a daily basis. Culture results were positive for 2+ Staphylococcus pseudointermedius. Based upon the sensitivity results, the patient has been placed on doxycycline 100 mg p.o. daily, for a total of 7 days, which has now been completed. We are to implement the use of collagen hydrogel, which will be applied topically to the wound on a daily basis. The patient has been instructed in the appropriate means of application. The patient's wound appears to be now nearly totally healed. The patient is to return in 2 weeks for reassessment. She will be traveling to the [facility] in the near future, and has been counseled as to the appropriate means of prophylaxis with regard to swelling and thromboembolism. Total time: 29 minutes
== END 2022-08-24 23:59 | disposition home or self-care (01) ==
LOC: WC 10:30
PROVIDERS: PCP Nurse Practitioner Family; Visit Provider Surgery
DX: L97.222 Non-pressure chronic ulcer of left calf with fat layer exposed (principal); L97.221 Non-pressure chronic ulcer of left calf limited to breakdown of skin; I48.91 Unspecified atrial fibrillation; K21.9 Gastro-esophageal reflux disease without esophagitis; M19.90 Unspecified osteoarthritis, unspecified site; E78.5 Hyperlipidemia, unspecified; Z96.659 Presence of unspecified artificial knee joint; M79.89 Other specified soft tissue disorders; M41.9 Scoliosis, unspecified; Z87.891 Personal history of nicotine dependence; I10 Essential (primary) hypertension; Z90.49 Acquired absence of other specified parts of digestive tract; I49.3 Ventricular premature depolarization; R73.03 Prediabetes; Z79.01 Long term (current) use of anticoagulants; Z79.899 Other long term (current) drug therapy
CPT/HCPCS: 11042; 97597

== ENCOUNTER 2022-09-04 10:25 | Outpatient (RCR) | payer MEDICARE, SELFPAY ==
[2022-08-25 01:39] VITALS: BP 123/76; PULSE 70; RESP 16; TEMP 36.1; BMI 25.7
[2022-09-04 10:52] VITALS: BP 127/72; PULSE 67; TEMP 35.9; BMI 25.7
--- NOTE | 2022-09-04 12:53 | HP.PCM_ITS ---
History of Present Illness Date of Service: 09/04/22 Chief Complaint: Chronic nonhealing of a cutaneous biopsy site History of Wound: This is a 76-year-old female who presented with a chronic, non-healing cutaneous biopsy site on her left lateral calf. Patient has a history of malignant melanoma in her right leg. 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 In March 2022 the patient underwent excisional biopsy of a skin lesion on the left lateral calf. This was performed by Dr. Shae Velazquez at [facility]. While the biopsy results are not currently available, the patient states that she was told that it was precancerous. We will attempt to obtain the written biopsy report. The biopsy site has failed to heal. She has been referred for definitive management. She had been applying Vaseline topically to the site. [facility] Medical History Arthritis Atrial fibrillation Borderline diabetes mellitus Chronic wound of extremity Degenerative disc disease GERD (gastroesophageal reflux disease) History of meningioma History of TIA (transient ischemic attack) Hyperlipidemia Hyperpigmentation Hypertension Left leg swelling Mitral valve regurgitation PVCs (premature ventricular contractions) Scoliosis Swelling of left lower extremity Home Medications Lactobacillus acidophilus 1.5 mg (250 million cell) capsule (Probiotic Acidophilus) PO DAILY 07/24/22 [History Last Taken Unknown] acetaminophen 325 mg tablet (Tylenol) 325 - 650 mg PO Q6H PRN Pain 07/24/22 [History Last Taken Unknown] apixaban 5 mg tablet (Eliquis) 5 mg PO BID 07/24/22 [History Last Taken Unknown] atorvastatin 10 mg tablet 10 mg PO DAILY 07/24/22 [History Last Taken Unknown] biotin PO/SL DAILY 07/24/22 [History Last Taken Unknown] cholecalciferol (vitamin D3) 25 mcg (1,000 unit) tablet (Vitamin D3) 25 mcg PO DAILY 07/24/22 [History Last Taken Unknown] diphenhydramine HCl 25 mg capsule (Benadryl) 25 mg PO QHS 07/24/22 [History Last Taken Unknown] escitalopram oxalate 20 mg tablet 20 mg PO DAILY 07/24/22 [History Last Taken Unknown] fiber cap PO 07/24/22 [History Last Taken Unknown] metoprolol succinate 50 mg tablet,extended release 24 hr 50 mg PO DAILY 07/24/22 [History Last Taken Unknown] multivitamin 1 tab PO BID 07/24/22 [History Last Taken Unknown] omega 3-ixk-qxk-fish oil 1,200 mg (144 mg-216 mg) capsule (Fish Oil) 1,200 cap PO DAILY 07/24/22 [History Last Taken Unknown] omeprazole 20 mg capsule,delayed release 20 mg PO DAILY 07/24/22 [History Last Taken Unknown] Allergy/AdvReac Type Severity Reaction Status Date / Time sertraline [From Zoloft] Allergy Hives Verified 07/24/22 10:43 Sulfa (Sulfonamide Allergy PT UNSURE Verified 07/24/22 10:43 Antibiotics) OF REACTION amoxicillin [From Augmentin] AdvReac Diarrhea Verified 07/24/22 10:43 clavulanic acid AdvReac Diarrhea Verified 07/24/22 10:43 [From Augmentin] Iodinated Contrast Media AdvReac PT UNSURE Verified 07/24/22 10:43 [CONTRASTS] OF REACTION Surgical History Status post appendectomy Status post cataract extraction Status post partial colectomy Status post tonsillectomy Status post total knee replacement Status post tubal ligation Social History Smoking Status: Former smoker Vital Signs Vital Signs Vital Signs: 09/04/22 10:52 Temperature 96.7 F L Temperature Source Temporal Pulse Rate 67 Blood Pressure 127/72 H Blood Pressure Mean 90 Blood Pressure Source Monitor Blood Pressure Position Sitting Blood Pressure Location Left Arm Weight Weight: 134 lb Body Mass Index (BMI) 25.7 Physical Exam Const alert, oriented x3, no apparent distress, average body habitus and well nourished General Appearance: cooperative, comfortable, well kempt and well developed Orientation / Consciousness: awake, oriented to person, oriented to place and oriented to time Exam Limitations: no limitations HEENT normocephalic and head/scalp atraumatic Head and Scalp: normal to inspection, normocephalic and atraumatic External Ear: external ears normal Eyes PERRL and EOMs intact bilaterally General Eye: normal appearance of both eyes Resp normal respiratory effort, normal air movement, no retractions and no use of accessory muscles Effort and Inspection: able to speak in complete sentences Extremity no calf tenderness General Extremity: Negative for clubbing or cyanosis Skin Wound Narrative: Mild hemosiderin staining/hyperpigmentation is noted in the gaiter area of the left lower extremity. Minimal swelling is noted in the left lower extremity. The wound on the patient's left lateral calf is now completely healed and epithelialized. Neuro oriented x3, CN's II-XII intact bilaterally, moves all extremities and no focal motor deficits Sensorium / Orientation: awake, alert, oriented to person, oriented to place and oriented to time Psych Appearance: grossly normal and appropriate Attitude: calm Activity / Motor Behavior: appropriate eye contact Speech: normal speech Mood & Affect: euthymic mood Thought Process: normal thought process Thought Content: normal thought content Attention / Concentration: attention grossly intact Debridement Note Debridement Note No debridement was completed: No debridement was completed today (There are no open wounds or ulcerations.) Post-Debridement Measurements and Additional Note: Post-Debridement Measurements/Treatment WC - Nurse 1 - General Ulcer Assessment Start: 09/04/22 10:51 Freq: Status: Active Protocol: ALEJANDRA Activity Type Activity Date Activity User E-sign Co-sign Detail Recorded Client Recorded Date Recorded By Document 09/04/22 10:52 SHAY [id number] 09/04/22 10:52 SHAY 09/04/22 10:52 - Today's Visit Information Type of service Follow-up Visit (Physician/RESTAURANT ATTENDANT ) Arrival Mode Ambulatory Patient Identification Verified (Name & Yes ) Height and Weight Body Mass Index (BMI) 25.7 BMI Classification Overweight Vital Signs Temperature (97.8 F-99.1 F) 96.7 F L Temperature Source Temporal Pulse Rate (60-100) 67 Pulse Location Monitor Blood Pressure (90/60-120/80) 127/72 H Blood Pressure Mean 90 Source Monitor Position Sitting Blood Pressure Location Left Arm History Since Last Visit- (Skip if this is Patient's initial visit) Have you changed medications since your No last visit? Any new allergies or adverse reactions No Had a fall/change in ADL's that may No increase risk of falls Signs or symptoms of abuse and/or No neglect since last visit Have you been in the hospital since your No last visit? Has dressing in place as prescribed Yes Has compression in place as prescribed N/A Has offloadiing in place as prescribed N/A Experienced any changes in pain level or No management Left Footwear Regular Shoe Right Footwear Regular Shoe Pain Scale: 0-10 Numeric Is Patient Pain Free? Yes WC - Nurse 1 - General Ulcer Measurement Start: 09/04/22 10:51 Freq: Status: Active Protocol: Activity Type Activity Date Activity User E-sign Co-sign Detail Recorded Client Recorded Date Recorded By Document 09/04/22 10:52 SHAY [id number] 09/04/22 10:52 SHAY 09/04/22 10:52 Wound Center Nurse 1 #1 left lateral LE -Current Size (cm) - Length 0.1 -Current Size (cm) - Width 0.1 -Current Size (cm) - Depth 0.1 -Total Square Cm 0.01 -Granulation Amt None Present (0 %) -Necrosis Amt None Present (0 %) -Texture (Crystal-wound Skin Appearance) No Abnormality, Assessed -Moisture (Crystal-wound Skin Appearance) No Abnormality, Assessed -Color (Crystal-wound Skin Appearance) No Abnormality, Assessed -Temperature (Crystal-wound Skin No Abnormality Appearance) (Pt Warm) -Tenderness on Palpation (Crystal-wound No Skin Appearance) -Ulcer Cleansing Rinsed/ Irrigated with Saline -Anesthetic Used 5% Lidocaine Gel WC - Nurse 2 - General Ulcer CM Notes Start: 09/04/22 10:51 Freq: Status: Active Protocol: Activity Type Activity Date Activity User E-sign Co-sign Detail Recorded Client Recorded Date Recorded By Document 09/04/22 12:18 PL [id number] 09/04/22 12:18 PL 09/04/22 12:18 Wound Center Nurse 2 -Procedure Performed No -Wound/Ulcer Outcome Healed- Epithelialized Pain Scale: 0-10 Numeric Is Patient Pain Free? Yes Assessment/Plan Assessment/Plan (1) Chronic wound of extremity: (2) Swelling of left lower extremity: CODE(S): M79.89 - Other specified soft tissue disorders (3) Atrial fibrillation: CODE(S): I48.91 - Unspecified atrial fibrillation (4) History of meningioma: CODE(S): Z86.018 - Personal history of other benign neoplasm (5) Degenerative disc disease: (6) Arthritis: CODE(S): M19.90 - Unspecified osteoarthritis, unspecified site (7) GERD (gastroesophageal reflux disease): CODE(S): K21.9 - Gastro-esophageal reflux disease without esophagitis (8) Borderline diabetes mellitus: CODE(S): R73.03 - Prediabetes (9) Mitral valve regurgitation: CODE(S): I34.0 - Nonrheumatic mitral (valve) insufficiency (10) PVCs (premature ventricular contractions): CODE(S): I49.3 - Ventricular premature depolarization (11) Scoliosis: CODE(S): M41.9 - Scoliosis, unspecified (12) History of TIA (transient ischemic attack): CODE(S): Z86.73 - Personal history of transient ischemic attack (TIA), and cerebral infarction without residual deficits (13) Status post appendectomy: CODE(S): Z90.49 - Acquired absence of other specified parts of digestive tract (14) Status post partial colectomy: CODE(S): Z90.49 - Acquired absence of other specified parts of digestive tract (15) Status post total knee replacement: CODE(S): Z96.659 - Presence of unspecified artificial knee joint (16) Status post tubal ligation: CODE(S): Z98.51 - Tubal ligation status (17) Status post tonsillectomy: CODE(S): Z90.89 - Acquired absence of other organs (18) Status post cataract extraction: CODE(S): Z98.49 - Cataract extraction status, unspecified eye (19) Hypertension: CODE(S): I10 - Essential (primary) hypertension (20) Hyperlipidemia: CODE(S): E78.5 - Hyperlipidemia, unspecified (21) Hyperpigmentation: CODE(S): L81.9 - Disorder of pigmentation, unspecified (22) Left leg swelling: CODE(S): M79.89 - Other specified soft tissue disorders PLAN: Plan This is a 76-year-old female who presented with a chronic, nonhealing wound on the left lateral calf, the result of a surgical biopsy performed in March 2022. The wound on the left lateral calf is now completely healed and epithelialized. There are no remaining wounds or ulcerations. There is no significant swelling in the lower extremities. The patient is to be discharged, and will follow-up henceforth on an as-needed basis. Total time: 24 minutes
== END 2022-09-05 11:09 | disposition home or self-care (01) ==
LOC: WC 10:25
PROVIDERS: PCP Nurse Practitioner Family; Visit Provider Surgery
DX: M79.89 Other specified soft tissue disorders (principal); I48.91 Unspecified atrial fibrillation; I10 Essential (primary) hypertension; Z87.891 Personal history of nicotine dependence; E78.5 Hyperlipidemia, unspecified; R73.03 Prediabetes; M19.90 Unspecified osteoarthritis, unspecified site; Z90.89 Acquired absence of other organs; K21.9 Gastro-esophageal reflux disease without esophagitis; I49.3 Ventricular premature depolarization; Z90.49 Acquired absence of other specified parts of digestive tract; M41.9 Scoliosis, unspecified; I34.0 Nonrheumatic mitral (valve) insufficiency; Z96.659 Presence of unspecified artificial knee joint; Z79.01 Long term (current) use of anticoagulants; Z86.018 Personal history of other benign neoplasm; Z86.73 Personal history of transient ischemic attack (TIA), and cerebral infarction without residual deficits; Z98.51 Tubal ligation status; Z98.49 Cataract extraction status, unspecified eye
CPT/HCPCS: 99213; G0463